=== PATIENT | male | born 1945 | race Native Hawaiian/Other Pacific Islander ===

== ENCOUNTER 2016-06-05 15:42 | Outpatient (CLI) | payer OTHER ==
[2016-06-05 15:53] LABS: PLATELET COUNT 113 K/uL (142-355)
[2016-06-05 17:02] LABS: POTASSIUM 4.7 mmol/L (3.6-5.2)
== END 2016-06-05 19:39 | disposition home or self-care (01) ==
LOC: LABW 15:42
PROVIDERS: Internal Medicine Nephrology
DX: I12.9 Hypertensive chronic kidney disease with stage 1 through stage 4 chronic kidney disease, or unspecified chronic kidney disease (principal); N18.4 Chronic kidney disease, stage 4 (severe)
CPT/HCPCS: 36415; 80053; 80061; 83970; 84100; 85027

== ENCOUNTER 2016-08-11 15:49 | Outpatient (CLI) | payer OTHER ==
[2016-08-11 16:12] LABS: PLATELET COUNT 109 K/uL (142-355)
[2016-08-11 16:30] LABS: POTASSIUM 5.5 mmol/L (3.6-5.2)
== END 2016-08-11 20:02 | disposition home or self-care (01) ==
LOC: LAB 15:49
PROVIDERS: Internal Medicine Nephrology
DX: I50.9 Heart failure, unspecified (principal); N18.3 Chronic kidney disease, stage 3 (moderate); D63.1 Anemia in chronic kidney disease; E11.9 Type 2 diabetes mellitus without complications
CPT/HCPCS: 36415; 80053; 82306; 83880; 84100; 85027

== ENCOUNTER 2016-10-20 15:53 | Outpatient (CLI) | payer OTHER ==
[2016-10-20 16:15] LABS: PLATELET COUNT 109 K/uL (142-355)
[2016-10-20 17:03] LABS: POTASSIUM 4.2 mmol/L (3.6-5.2)
== END 2016-10-20 16:55 | disposition home or self-care (01) ==
LOC: LABW 15:53
PROVIDERS: Internal Medicine Nephrology
DX: N18.3 Chronic kidney disease, stage 3 (moderate) (principal); I50.9 Heart failure, unspecified; D63.1 Anemia in chronic kidney disease
CPT/HCPCS: 36415; 80053; 81000; 82570; 82652; 83970; 84100; 84155; 84436; 84443; 85027

== ENCOUNTER 2016-10-31 08:52 | Outpatient (CLI) | payer OTHER | END 2016-10-31 19:05 | disposition home or self-care (01) | LOC: US 08:52 | DX: N15.8 Other specified renal tubulo-interstitial diseases (principal) ==

== ENCOUNTER 2016-12-07 10:20 | Outpatient (CLI) | payer OTHER ==
[2016-12-07 10:40] LABS: PLATELET COUNT 128 K/uL (142-355)
[2016-12-07 10:52] LABS: POTASSIUM 4.9 mmol/L (3.6-5.2)
== END 2016-12-07 11:20 | disposition home or self-care (01) ==
LOC: LABW 10:20
PROVIDERS: Internal Medicine Nephrology
DX: N18.3 Chronic kidney disease, stage 3 (moderate) (principal); D63.1 Anemia in chronic kidney disease; I50.9 Heart failure, unspecified
CPT/HCPCS: 36415; 80053; 84100; 85027

== ENCOUNTER 2017-01-23 11:51 | Outpatient (CLI) | payer OTHER ==
[2017-01-23 12:40] LABS: PLATELET COUNT 143 K/uL (142-355)
[2017-01-23 13:20] LABS: POTASSIUM 4.8 mmol/L (3.6-5.2)
== END 2017-01-23 19:05 | disposition home or self-care (01) ==
LOC: LABW 11:51
PROVIDERS: Internal Medicine Nephrology
DX: N18.4 Chronic kidney disease, stage 4 (severe) (principal); D63.1 Anemia in chronic kidney disease; N25.81 Secondary hyperparathyroidism of renal origin
CPT/HCPCS: 36415; 80053; 81000; 82043; 82570; 82607; 82652; 82728; 82747; 83540; 83550; 83970; 84100; 85027

== ENCOUNTER 2017-02-09 14:07 | Outpatient (CLI) | payer OTHER ==
[2017-02-09 14:38] LABS: POTASSIUM 4.3 mmol/L (3.6-5.2)
[2017-02-09 14:40] LABS: PLATELET COUNT 149 K/uL (142-355)
== END 2017-02-09 19:01 | disposition home or self-care (01) ==
LOC: LABW 14:07
PROVIDERS: Internal Medicine Nephrology
DX: I50.9 Heart failure, unspecified (principal); N18.3 Chronic kidney disease, stage 3 (moderate); D63.1 Anemia in chronic kidney disease
CPT/HCPCS: 36415; 80053; 84100; 85027

== ENCOUNTER 2017-06-20 16:17 | Outpatient (CLI) | payer OTHER | END 2017-06-20 19:37 | disposition home or self-care (01) | LOC: RAD 16:17 | DX: R06.02 Shortness of breath (principal); R05 Cough ==

== ENCOUNTER 2017-10-02 09:56 | Outpatient (CLI) | payer OTHER | END 2017-10-02 23:12 | disposition home or self-care (01) | LOC: US 09:56 | DX: R11.2 Nausea with vomiting, unspecified (principal); R05 Cough; R06.02 Shortness of breath ==

== ENCOUNTER 2017-10-04 11:06 | Outpatient (CLI) | payer OTHER | END 2017-10-04 19:38 | disposition home or self-care (01) | LOC: US 11:06 → NM 11:06 | DX: R11.2 Nausea with vomiting, unspecified (principal) | CPT/HCPCS: A9537 ==

== ENCOUNTER 2018-11-01 10:21 | Emergency (ER) | payer OTHER ==
[~2018-11-01] VITALS: Ht 180.3 cm; Wt 160.6 kg
[2018-11-01 10:26] VITALS: TEMP 98.4
[2018-11-01 11:20] LABS: POTASSIUM 4.6 mmol/L (3.6-5.2)
[2018-11-01 11:32] LABS: PARTIAL THROMBOPLASTIN TIME 25.5 SECONDS (24.5-33.6); PLATELET COUNT 102 K/uL (142-355)
[2018-11-01 12:40] VITALS: BP 124/62
== END 2018-11-01 12:45 | disposition home or self-care (01) ==
LOC: ED 10:21
PROVIDERS: Family Medicine
DX: K63.89 Other specified diseases of intestine (principal); R93.2 Abnormal findings on diagnostic imaging of liver and biliary tract
CPT/HCPCS: 36415; 80053; 82150; 83690; 85027; 85610; 85730; 96374; 99283; J1885

== ENCOUNTER 2018-12-19 08:59 | Outpatient (CLI) | payer OTHER | END 2018-12-19 19:50 | disposition home or self-care (01) | LOC: US 08:59 | DX: R10.84 Generalized abdominal pain (principal) ==

== ENCOUNTER 2019-02-07 14:58 | Outpatient (CLI) | payer OTHER | END 2019-02-07 14:59 | disposition short-term general hospital (02) | LOC: AMB 14:58 | DX: R07.89 Other chest pain (principal); Z99.2 Dependence on renal dialysis | CPT/HCPCS: A0425; A0429 ==

== ENCOUNTER 2019-02-07 15:16 | Emergency (ER) | payer OTHER ==
[~2019-02-07] VITALS: Ht 180.3 cm; Wt 160.6 kg
[2019-02-07 15:18] VITALS: TEMP 98.3
[2019-02-07 16:00] LABS: PLATELET COUNT 94 K/uL (142-355)
[2019-02-07 16:26] LABS: POTASSIUM 3.9 mmol/L (3.6-5.2); SODIUM 139 mmol/L (136-145)
[2019-02-07 17:26] VITALS: BP 115/67
== END 2019-02-07 17:23 | disposition home or self-care (01) ==
LOC: ED 15:16
PROVIDERS: Family Medicine
DX: R07.89 Other chest pain (principal); I48.91 Unspecified atrial fibrillation; I45.19 Other right bundle-branch block
CPT/HCPCS: 36415; 80053; 82550; 84484; 85027; 93005; 99283

== ENCOUNTER 2019-03-01 09:19 | Emergency (ER) | payer OTHER ==
[~2019-03-01] VITALS: Ht 180.3 cm; Wt 108.9 kg
[2019-03-01 09:19] VITALS: TEMP 97.7
[2019-03-01 10:21] LABS: POTASSIUM 4.4 mmol/L (3.6-5.2)
[2019-03-01 10:39] LABS: PLATELET COUNT 122 K/uL (142-355)
[2019-03-01 13:18] VITALS: BP 115/71
== END 2019-03-01 13:18 | disposition home or self-care (01) ==
LOC: ED 09:45
PROVIDERS: Emergency Medicine Emergency Medical Services
DX: J20.9 Acute bronchitis, unspecified (principal); B35.6 Tinea cruris
CPT/HCPCS: 36415; 80053; 83880; 85027; 87502; 87651; 94664; 96365; 96375; 99284; J0696; J2930

== ENCOUNTER 2019-03-06 13:23 | Emergency (ER) | payer OTHER ==
[~2019-03-06] VITALS: Ht 180.3 cm; Wt 122.5 kg
[2019-03-06 13:23] VITALS: TEMP 98.2
[2019-03-06 14:25] LABS: PLATELET COUNT 157 K/uL (142-355)
[2019-03-06 14:30] LABS: POTASSIUM 4.3 mmol/L (3.6-5.2); SODIUM 140 mmol/L (136-145)
[2019-03-06 14:53] LABS: PARTIAL THROMBOPLASTIN TIME 23.6 SECONDS (24.5-33.6)
[2019-03-06 16:12] VITALS: BP 128/74
== END 2019-03-06 16:11 | disposition short-term general hospital (02) ==
LOC: ED 13:23
PROVIDERS: Student in an Organized Health Care Education/Training Program
DX: J96.92 Respiratory failure, unspecified with hypercapnia (principal); J44.1 Chronic obstructive pulmonary disease with (acute) exacerbation; N18.6 End stage renal disease; Z99.2 Dependence on renal dialysis; I48.91 Unspecified atrial fibrillation
CPT/HCPCS: 36600; 80048; 82805; 83735; 83880; 84484; 85027; 85610; 85730; 87040; 87205; 87502; 93005; 96374; 99284; J2930

== ENCOUNTER 2019-03-06 16:16 | Outpatient (CLI) | payer OTHER | END 2019-03-06 17:15 | disposition short-term general hospital (02) | LOC: AMB 16:16 | DX: J44.1 Chronic obstructive pulmonary disease with (acute) exacerbation (principal); J96.92 Respiratory failure, unspecified with hypercapnia; N18.6 End stage renal disease | CPT/HCPCS: A0425; A0427 ==

== ENCOUNTER 2019-03-18 09:48 | Emergency (ER) | payer OTHER ==
[~2019-03-18] VITALS: Ht 180.3 cm; Wt 122.5 kg
[2019-03-18 10:39] LABS: PLATELET COUNT 80 K/uL (142-355)
[2019-03-18 10:52] LABS: SODIUM 137 mmol/L (136-145)
[2019-03-18 14:30] VITALS: BP 93/55; TEMP 97.8
== END 2019-03-18 14:30 | disposition short-term general hospital (02) ==
LOC: ED 09:48
PROVIDERS: Family Medicine
PROC: 0T9B70Z Drainage of Bladder with Drainage Device, Via Natural or Artificial Opening (ICD-10-PCS; principal; 2019-03-18)
DX: R09.02 Hypoxemia (principal); J18.9 Pneumonia, unspecified organism; N18.6 End stage renal disease; Z99.2 Dependence on renal dialysis; J18.1 Lobar pneumonia, unspecified organism; I48.91 Unspecified atrial fibrillation; I45.19 Other right bundle-branch block
CPT/HCPCS: 36600; 51702; 80053; 81000; 82550; 82805; 83605; 83880; 84484; 85027; 87040; 93005; 94660; 96365; 99284; J0696